=== PATIENT | male | born 1965 | race Caucasian/White ===

== ENCOUNTER 2022-02-09 16:30 | Emergency (ER) | payer MEDICAID, SELFPAY ==
[2022-02-09 16:58] VITALS: BP 152/96; PULSE 86; RESP 18; TEMP 35.6; O2SAT 99; BMI 31.0
--- NOTE | 2022-02-09 18:23 | ED.DENTAL ---
HPI - Dental/Oral General Chief complaint: Dental/Oral Stated complaint: infection in mouth Time Seen by Provider: 02/09/22 18:07 Source: patient and family Mode of arrival: ambulatory Limitations: language barrier ( Guatemalan-speaking) History of Present Illness MD Complaint: tooth pain Teeth map: 1. Onset (ago): week(s) (5-6) Duration: constant Severity: severe Severity scale (1-10): >10 Relieving factors: nothing Exacerbating factors: nothing Context: other ( patient reports he recently had a dental extraction at [facility] approximately 5-6 days ago and he has been having pain since then he tried to call them and he does not have an appointment till next week Tuesday and he is in severe pain unable to sleep or eat) Treatment prior to arrival: other ( he has been taking [id number] Motrin Tylenol no symptomatic relief) Related Data Previous Rx's Medication Instructions Recorded acetaminophen 500 mg tablet 1,000 mg PO QID PRN #20 tab 02/09/22 (Tylenol Extra Strength) clindamycin HCl 300 mg capsule 300 mg PO TID 14 Days #42 cap 02/09/22 ibuprofen 800 mg tablet 800 mg PO Q8H PRN #20 tab 02/09/22 oxycodone 5 mg tablet 5 mg PO Q6H PRN #20 tab 02/09/22 Allergies Allergy/AdvReac Type Severity Reaction Status Date / Time No Known Allergies Allergy Verified 02/09/22 17:02 Review of Systems Review of Systems: Constitutional : No Fever, No Chills, No changes in PO intake, No difficulty speaking, no recent dental procedure, no heat or cold intolerance while eating, no recent face trauma, ENT/Mouth : + Dental pain, No Sore throat, No Jaw pain, No throat swelling, No swallowing difficulty, no change in voice, No facial swelling, no drooling, no trismus, no bleeding, no lacerations, no tongue swelling, gum swelling, Eyes: No Eye Pain, No periorbital Swelling Cardiovascular : No Chest Pain, No SOB Respiratory : No Cough, No Sputum, No Wheezing, No Smoke Exposure, No Dyspnea Gastrointestinal : No Nausea, No Vomiting, No Diarrhea Genitourinary : No Dysuria Musculoskeletal : No Myalgias Skin : No rash, no facial swelling or redness, Neuro : No Weakness, No Numbness, No Headache Yes all other systems are reviewed and are negative [facility] Past Medical History Attestation statement: The following information was validated with the patient. Medical History No known health problems Surgical History S/P hernia surgery Social History Social History Advance Directives: No Advance Directives Information Provided: No Physical Exam Vital Signs: Vital Signs: Last Vital Signs Temp 96.0 F L 02/09/22 16:58 Pulse 86 02/09/22 16:58 Resp 18 02/09/22 16:58 BP 152/96 H 02/09/22 16:58 Pulse Ox 99 02/09/22 16:58 BMI result Body Mass Index 31.0 vital signs have been reviewed as normal and appeared to be correct. Blood pressure normal. Heart rate normal. Respiration rate normal. Temperature normal. Oxygen saturation normal. Appearance: Alert. Oriented X3. No acute distress. Head: Normal external exam. Normocephalic. Atraumatic. Eyes: PERRLA. EOMI. Conjunctiva and sclera normal. Eyelids normal. ENT: EAC normal. TM's Normal. Pharynx normal. Uvula midline. Moist mucous membranes. No trismus noted. No drooling noted. No muffled voice noted. Dentition: to the left lower 2nd bicuspid or the 1st molar was extracted and it appears that patient has a piece of the retained [address] There is no obvious signs of infection. The gingival is otherwise within normal limits. There is no fluctuance.Not consistent with peritonsillar abscess. Not consistent with dental abscess. No salivary duct obstruction noted. Neck: Normal inspection. Neck supple. FROM. No adenopathy. Thyroid Normal. No meningeal signs. No neck mass noted. Trachea midline. CVS: Normal heart rate and rhythm. Heart sound normal. No murmurs noted. Pulses normal throughout. Respiratory: No respiratory distress. Painless inspiration. Breath sounds normal. No wheezes/rales/rhonchi noted. Chest nontender. No accessory muscle usage noted or decreased air movement noted. Back: Full range of motion noted. Skin: Skin warm and dry. Normal skin color. Normal skin turgor. No rashes/lesions/lacerations noted. Extremities:Extremities exhibit normal range of motion. Extremities nontender. Neuro: Oriented X 3. No motor deficit. No sensory deficit. Reflexes normal. Course Course Course Narrative: 56-year-old male presenting to the ED after 5-6 days of having a dental extraction at [facility] he reports he has been taking Motrin Tylenol no symptomatic relief in the pain just continues to get worse he denies any fevers or any trouble swallowing or breathing. On exam it appears that he has a piece of the retained 2. It does not appear that he has dry socket at this time. Therefore no imaging or labs indicated. Not consistent with dental abscess/ gingival abscess/ with pharyngeal abscess. He is tolerating secretions well. No trismus/ drooling /stridor noted. Soft and hard palate are within normal limits. Uvula is midline. Therefore at this time will DC home with antibiotics and symptomatic treatment instructions to call his dentist / oral surgeon tomorrow and explained to them that he was seen here and has a retained tooth and that they will need to remove it. Patient understands agrees with this plan. [facility] - Dental/Oral Medical Records Attestation: I reviewed the patient's medical records. Discharge Plan Discharge Clinical Impression: Retained tooth Patient Disposition: Home, Self-Care Instructions: Toothache (ED) Prescriptions: New clindamycin HCl 300 mg capsule 300 mg PO TID 14 Days Qty: 42 0RF ibuprofen 800 mg tablet 800 mg PO Q8H PRN (Reason: pain) Qty: 20 0RF acetaminophen [Tylenol Extra Strength] 500 mg tablet 1,000 mg PO QID PRN (Reason: fever or pain) Qty: 20 0RF oxycodone 5 mg tablet 5 mg PO Q6H PRN (Reason: pain) Qty: 20 0RF Referrals: Physician,Unknown J [Primary Care Provider] - 1 day (your dentitis) Print Language: Guatemalan
== END 2022-02-09 18:38 | disposition home or self-care (01) ==
PROVIDERS: Emergency Provider Internal Medicine
DX: K04.7 Periapical abscess without sinus (principal)
CPT/HCPCS: 99283

== ENCOUNTER 2023-09-05 09:51 | Emergency (ER) | payer MEDICAID, SELFPAY ==
--- NOTE | ~2023-09-05 | XR_ITS ---
EXAMINATION: XR CHEST CLINICAL INFORMATION: Chest pain COMPARISON: None available. TECHNIQUE: 2 views of the chest were obtained. FINDINGS: No significant abnormality is noted involving the heart, lungs, mediastinum, bony thorax or soft tissues. XR/XR chest 2V IMPRESSION: Unremarkable chest examination.
--- NOTE | 2023-09-05 09:54 | ECG_ITS ---
Test Reason : CHEST PAIN Blood Pressure : / mmHG Vent. Rate : 081 BPM Atrial Rate : 081 BPM P-R Int : 162 ms QRS Dur : 082 ms QT Int : 336 ms P-R-T Axes : 071 028 018 degrees QTc Int : 390 ms Normal sinus rhythm Possible Left atrial enlargement Nonspecific T wave abnormality Abnormal ECG No previous ECGs available Referred By: Generic ED Physician Electronically Signed By:VELMA COX
[2023-09-05 10:03] VITALS: BP 169/104; PULSE 84; RESP 14; TEMP 36.2; O2SAT 97; BMI 31.0
[2023-09-05 10:10] VITALS: BP 163/93; PULSE 84; RESP 22; TEMP 37.1; O2SAT 99
[2023-09-05 10:26] VITALS: BP 146/96; PULSE 84; RESP 16; TEMP 36.5; O2SAT 98
--- NOTE | 2023-09-05 10:26 | ED.CHESTPAIN ---
HPI - Chest Pain General Chief Complaint: Chest Pain Stated Complaint: chest pain Time Seen by Provider: 09/05/23 10:05 Source: patient, RN notes reviewed and old records reviewed Mode of arrival: ambulatory History of Present Illness HPI narrative: 57-year-old Comoran-speaking male with no significant past medical history presenting to the ED complaining of a left-sided chest pain radiating to left neck, LUE and left upper back x 1 week described as stabbing, worsening/becoming more constant since last night. Reports topical creams at home provided some relief. Denies other exacerbating/alleviating factors, SOB, fever/chills, cough, new exercises, trauma/fall, pedal edema MD complaint: chest pain Related Data Previous Rx's Medication Instructions Recorded acetaminophen 500 mg tablet 1,000 mg (2 x 500 mg) PO QID PRN 02/09/22 (Tylenol Extra Strength) fever or pain #20 tabs clindamycin HCl 300 mg capsule 300 mg PO TID 14 days #42 caps 02/09/22 ibuprofen 800 mg tablet 800 mg PO Q8H PRN pain #20 tabs 02/09/22 oxycodone 5 mg tablet 5 mg PO Q6H PRN pain #20 tabs 02/09/22 acetaminophen 500 mg tablet 500 mg PO Q6H PRN fever or pain 09/05/23 (Tylenol Extra Strength) #14 tabs cyclobenzaprine 5 mg tablet 5 mg PO Q8H PRN pain (scale score 09/05/23 7-10) 5 days #14 tabs lidocaine 5 % topical patch 1 patch topical DAILY PRN pain #30 09/05/23 (Lidoderm) ea naproxen 500 mg tablet 500 mg PO BID PRN pain 10 days #20 09/05/23 tabs Allergies Allergy/AdvReac Type Severity Reaction Status Date / Time No Known Allergies Allergy Verified 09/05/23 10:03 Review of Systems Review of Systems: Constitutional: No Fever, No Chills, No Fatigue, No Malaise ENT/Mouth: No Ear Pain, No Nasal Congestion, No sore throat, No Rhinorrhea, No Swallowing Difficulty Eyes: No Eye Pain, No Swelling, No Redness, No Vision Changes Cardiovascular: + Chest Pain, No SOB, No Edema, No Palpitations Respiratory: No Cough, No Sputum, No Dyspnea Gastrointestinal: No Nausea, No Vomiting, No Diarrhea, No Constipation, No Abdominal pain Musculoskeletal: No joint pain, No Myalgias, No Joint Swelling Skin: No Skin Lesions, No rash Neuro: No Weakness, No Dizziness, No Headache Yes all other systems are reviewed and are negative Constitutional: Constitutional: Reports as per [facility] Past Medical History Attestation statement: The following information was validated with the patient. Source: old records reviewed Medical History No known health problems Surgical History S/P hernia surgery Social History Social History Smoked in Last 30 Days: No Use of substances other than those prescribed or required for medical reasons: No Advance Directives: No Advance Directives Information Provided: Yes Physical Exam Vital Signs: Vital Signs: Last Vital Signs Temp 97.7 F 09/05/23 10:26 Pulse 72 09/05/23 12:00 Resp 15 09/05/23 12:00 BP 143/96 H 09/05/23 12:00 Pulse Ox 99 09/05/23 12:00 O2 Del Method Room Air 09/05/23 12:00 BMI result Body Mass Index 31.0 Const: General: cooperative, healthy appearing and no acute distress Orientation/consciousness: patient oriented x3 Limitations: no limitations HEENT: Head: Yes normal to inspection and Yes atraumatic Ears: hearing grossly normal bilaterally General nose exam: Normal external nose present Face and sinus: Yes normal facial exam Eyes: General: appearance normal, both eyes and all related structures EOM: EOMs intact bilaterally Neck: Neck: Yes normal visual inspection and Yes no meningeal signs Chest: Other: + left-sided anterior lateral and posterior chest wall with reproducible tenderness. No rash/erythema or ecchymosis. No flail chest Chest palpation & inspection: normal inspection of the chest, no crepitus and tenderness Resp: Effort & Inspection: normal respiratory effort and no respiratory distress Auscultation: clear to auscultation bilaterally, no crackles, no rales, no rhonchi and no wheezes Cardio: Rate: regular rate Heart sounds: S1 normal heart sound present and S2 normal heart sound present GI: Inspection: Yes normal to inspection Palpation (GI): Soft to palpation, nontender, no guarding and not rigid : General: Yes no CVA tenderness Back/Spine/Pelvis: Back: no CVA tenderness Skin: Rashes: no rashes Wounds: no wounds Neuro: General: patient oriented x3, tone normal and no meningeal signs Cranial nerves: Yes CN's II-XII intact bilaterally Gait exam (Neuro): Normal gait present Extrem: General: Yes normal to inspection, Yes no pedal edema and Yes no calf tenderness Course Course Course Narrative: -1417--no leukocytosis. D-dimer negative. Troponin x2 negative -COVID and influenza negative XR chest 2V IMPRESSION: Unremarkable chest examination. Results discussed with patient including worrisome signs and symptoms and strict return precautions, and when to return to the emergency department. They verbalized understanding and feel safe for discharge at this time. Medications Administered Discontinued Medications Generic Name Dose Route Start Last Admin Trade Name Freq PRN Reason Stop Dose Admin Cyclobenzaprine HCl 10 mg 09/05/23 12:48 09/05/23 13:02 Cyclobenzaprine Hcl 10 Mg Tablet PO 09/05/23 12:49 10 mg ONCE ONE Administration Ketorolac Tromethamine 15 mg 09/05/23 12:23 09/05/23 12:34 Ketorolac Tromethamine 15 Mg/Ml Vial IVPUSH 09/05/23 12:24 15 mg ONCE ONE Administration Lidocaine 1 patch 09/05/23 12:23 09/05/23 12:34 Lidocaine 4 % Patch Adh..Patch TRANSDERMA 09/05/23 12:24 1 patch ONCE ONE Administration Protocol Lidocaine 1 patch 09/05/23 12:48 09/05/23 13:02 Lidocaine 4 % Patch Adh..Patch TRANSDERMA 09/05/23 12:49 1 patch ONCE ONE Administration Protocol Medical Decision Making Medical Decision Making MDM Narrative: 57-year-old Comoran-speaking male with no significant past medical history presenting to the ED complaining of a left-sided chest pain radiating to left neck, LUE and left upper back x 1 week described as stabbing, worsening/becoming more constant since last night. On exam vital signs stable, NAD, nontoxic appearing with physical exam as noted above with reproducible chest wall tenderness. Lungs CTA, no pedal edema/calf tenderness. Concern for costochondritis vs ACS vs pneumonia or PTX. Lower suspicion for DVT/PE or CHF And colon EKG, labs, CXR, COVID/flu testing Please refer to course for remaining clinical decision making, interpretation of labs/imaging results, and discussions with consultants and/or family members. Differential Diagnosis Differential Diagnoses: The differential diagnosis associated with the presentation includes As above Admission/Observation Consideration of admission/observation: Escalation of care including admission/observation considered Lab Data MDM Lab Attestation statement: I reviewed the patient's lab results. 09/05/23 10:40 09/05/23 10:40 Labs: Lab Results 09/05/23 09/05/23 09/05/23 Range/Units 10:40 13:01 13:12 WBC 5.3 (4.8-10.8) X10*3/uL RBC 5.79 (4.60-5.80) X10*6/uL Hgb 14.9 (14.0-18.0) g/dl Hct 45.2 (42.0-52.0) % MCV 78.1 L (80.0-98.0) fL MCH 25.7 L (27.0-33.0) pg MCHC 33.0 (31.0-36.0) g/dl RDW 13.4 (11.0-16.0) % Plt Count 180 (160-400) X10*3/uL MPV 11.3 (9.4-12.4) fL Immature Gran % (Auto) 0.2 (0.0-0.4) % Neut % (Auto) 30.4 L (45-73) % Lymph % (Auto) 54.5 H (20-40) % [place] % (Auto) 8.0 (2-11) % Eos % (Auto) 6.1 H (0-4) % Baso % (Auto) 0.8 (0-2) % Lymph # (Auto) 2.9 (1.2-4.9) X10*3/uL [place] # (Auto) 0.4 (0.1-1.2) X10*3/uL Eos # (Auto) 0.3 (0.0-0.4) X10*3/uL Baso # (Auto) 0.0 (0.0-0.2) X10*3/uL Abs Immat Gran (auto) 0.01 (0.00-0.03) X10*3/uL Absolute Neuts (auto) 1.6 L (2.0-8.3) x10*3/uL Absolute Nucleated RBC 0.000 (0.0-0.012) X10*3/uL Nucleated RBC % (auto) 0.0 (0.0-0.2) /100WBC D-Dimer High Sensitivty NG/ML Sodium 140 (135-145) mmol/L Potassium 3.5 (3.3-5.1) mmol/L Chloride 105 (96-108) mmol/L Carbon Dioxide 25 (22-29) mmol/L Anion Gap 14 (12-20) BUN 16 (9-16) mg/dL Creatinine 1.07 (0.5-1.4) mg/dL Estim Creat Clear Calc 86.7 Estimated GFR > 60 Random Glucose 108 (60-115) mg/dL Calcium 9.5 (8.4-10.2) mg/dL Magnesium 2.1 (1.6-2.6) mg/dL Total Bilirubin 0.6 (0.0-1.0) mg/dL Direct Bilirubin 0.2 (0.0-0.5) mg/dL AST 24 (5-37) U/L ALT 32 (0-40) U/L Alkaline Phosphatase 54 (39-117) U/L Troponin I High Sens < 2.7 < 2.7 (<3.5-35.0) ng/L Total Protein 7.5 (6.5-8.0) g/dL Albumin 4.3 (3.5-5.0) g/dL COVID-19 (JULITO) Negative (Negative) COVID-19 Clin Com See Note Influenza Type A (PETRA) Negative (Negative) Influenza Type B (PETRA) Negative (Negative) Influenza A & B Note See Note 09/05/23 Range/Units 13:35 WBC (4.8-10.8) X10*3/uL RBC (4.60-5.80) X10*6/uL Hgb (14.0-18.0) g/dl Hct (42.0-52.0) % MCV (80.0-98.0) fL MCH (27.0-33.0) pg MCHC (31.0-36.0) g/dl RDW (11.0-16.0) % Plt Count (160-400) X10*3/uL MPV (9.4-12.4) fL Immature Gran % (Auto) (0.0-0.4) % Neut % (Auto) (45-73) % Lymph % (Auto) (20-40) % [place] % (Auto) (2-11) % Eos % (Auto) (0-4) % Baso % (Auto) (0-2) % Lymph # (Auto) (1.2-4.9) X10*3/uL [place] # (Auto) (0.1-1.2) X10*3/uL Eos # (Auto) (0.0-0.4) X10*3/uL Baso # (Auto) (0.0-0.2) X10*3/uL Abs Immat Gran (auto) (0.00-0.03) X10*3/uL Absolute Neuts (auto) (2.0-8.3) x10*3/uL Absolute Nucleated RBC (0.0-0.012) X10*3/uL Nucleated RBC % (auto) (0.0-0.2) /100WBC D-Dimer High Sensitivty < 150 NG/ML Sodium (135-145) mmol/L Potassium (3.3-5.1) mmol/L Chloride (96-108) mmol/L Carbon Dioxide (22-29) mmol/L Anion Gap (12-20) BUN (9-16) mg/dL Creatinine (0.5-1.4) mg/dL Estim Creat Clear Calc Estimated GFR Random Glucose (60-115) mg/dL Calcium (8.4-10.2) mg/dL Magnesium (1.6-2.6) mg/dL Total Bilirubin (0.0-1.0) mg/dL Direct Bilirubin (0.0-0.5) mg/dL AST (5-37) U/L ALT (0-40) U/L Alkaline Phosphatase (39-117) U/L Troponin I High Sens (<3.5-35.0) ng/L Total Protein (6.5-8.0) g/dL Albumin (3.5-5.0) g/dL COVID-19 (JULITO) (Negative) COVID-19 Clin Com Influenza Type A (PETRA) (Negative) Influenza Type B (PETRA) (Negative) Influenza A & B Note Independent Interpretation I performed an independent interpretation of an: EKG and Plain X-Ray Radiology Impression Discussion of test interpretation with radiology: I have reviewed the radiologist's reading. Independent Historian Clinical information obtained from an independent historian. History obtained from or confirmed by: Spouse External Record Review External record reviewed: Inpatient record, Office record, Outpatient record, Prior outpatient labs, Prior outpatient radiology, Primary care record and Outside ED record Tests considered The following testing was considered but not selected: As above Prescription Management I considered prescription management with: Pain Medication Discharge Plan Discharge Clinical Impression: Atypical chest pain, Acute costochondritis Patient Disposition: Home, Self-Care Instructions: Costochondritis (ED), Noncardiac Chest Pain (ED) Additional Instructions: Your blood work and chest x-ray are reassuring you tested negative for COVID and flu Your pain is likely musculoskeletal however please follow-up with your doctor and Cardiology. If symptoms persist or worsen return to the ED Flexeril is a muscle relaxer, take at night as it makes you drowsy, do not drive, drink alcohol, or operate machinery while taking it Naproxen as an anti-inflammatory / pain medication, take with food Lidoderm patches are numbing patches, apply to painful area In addition take Tylenol at home Milner an?lisis de chet y milner radiograf?a de t?rax son tranquilizadores. connor negativo en la prueba de COVID y gripe Es probable que milner dolor sea musculoesquel?cinthya; sin embargo, jose un seguimiento con milner m?dico y con Cardiolog?a. Si los s?ntomas persisten o empeoran, regrese al servicio de urgencias. Flexeril es un relajante muscular, t?pressley por la noche ya que produce somnolencia, no conduzca, nadine alcohol ni opere maquinaria mientras lo mariano. Naproxeno bradley antiinflamatorio/analg?sico, lizbeth con alimentos Los parches de Lidoderm son parches adormecedores, se aplican en el ?mateo dolorida. Adem?s, tome Tylenol en casa. Prescriptions: New acetaminophen [Tylenol Extra Strength] 500 mg tablet 500 mg PO Q6H PRN (Reason: fever or pain) Qty: 14 0RF lidocaine [Lidoderm] 5 % adhesive patch,medicated 1 patch topical DAILY MDD remove after 12 hours PRN (Reason: pain) Qty: 30 0RF Rx Instructions: leave on most painful area for up to 12 hrs naproxen 500 mg tablet 500 mg PO BID PRN (Reason: pain) 10 Days Qty: 20 0RF cyclobenzaprine 5 mg tablet 5 mg PO Q8H PRN (Reason: pain (scale score 7-10)) 5 Days Qty: 14 0RF No Action clindamycin HCl 300 mg capsule 300 mg PO TID 14 Days Qty: 42 0RF ibuprofen 800 mg tablet 800 mg PO Q8H PRN (Reason: pain) Qty: 20 0RF acetaminophen [Tylenol Extra Strength] 500 mg tablet 1,000 mg PO QID PRN (Reason: fever or pain) Qty: 20 0RF oxycodone 5 mg tablet 5 mg PO Q6H PRN (Reason: pain) Qty: 20 0RF Referrals: [facility] [place] [facility] [Provider Group] Physician,Unknown J [Primary Care Provider] - Interventions: ED Discharge Assessment Last Done: 09/05/23 14:31 Discharge Date/Time: 09/05/23 14:36 Print Language: Comoran
--- NOTE | 2023-09-05 10:32 | PC.NURSE ---
left arm/neck/back/shoulder pain. stabbing. was happening last week too but got better. can't bear it. denies sob/n/v/dizziness. marble machine tender/radha mcmillan at bedside
[2023-09-05 10:44] LABS: MANUAL DIFF FLAG NO
[2023-09-05 10:47] LABS: Basophils Percent Auto 0.8 % (0-2); Eosinophils Absolute Auto 0.3 X10*3/uL (0.0-0.4); Eosinophils Percent Auto 6.1 % (0-4); Hematocrit 45.2 % (42.0-52.0); Hemoglobin 14.9 g/dl (14.0-18.0); Imm Gran Abs Auto 0.01 X10*3/uL (0.00-0.03); Imm Gran Pct Auto 0.2 % (0.0-0.4); Lymphocytes Absolute Auto 2.9 X10*3/uL (1.2-4.9); Lymphocytes Percent Auto 54.5 % (20-40); Mean Corpuscular Hemoglobin 25.7 pg (27.0-33.0); Mean Corpuscular Volume 78.1 fL (80.0-98.0); Mean Platelet Volume 11.3 fL (9.4-12.4); Monocytes Absolute Auto 0.4 X10*3/uL (0.1-1.2); Neutrophils Absolute Auto 1.6 x10*3/uL (2.0-8.3); Neutrophils Percent Auto 30.4 % (45-73); Platelet Count 180 X10*3/uL (160-400); Red Blood Count 5.79 X10*6/uL (4.60-5.80); Red Cell Distribution Width 13.4 % (11.0-16.0); White Blood Count 5.3 X10*3/uL (4.8-10.8)
[2023-09-05 11:00] LABS: Alanine Aminotransferase 32 U/L (0-40); Albumin Level 4.3 g/dL (3.5-5.0); Alkaline Phosphatase 54 U/L (39-117); Anion Gap 14 (12-20); Aspartate Amino Transferase 24 U/L (5-37); Bilirubin Direct 0.2 mg/dL (0.0-0.5); Bilirubin Total 0.6 mg/dL (0.0-1.0); Blood Urea Nitrogen 16 mg/dL (9-16); Calcium 9.5 mg/dL (8.4-10.2); Carbon Dioxide 25 mmol/L (22-29); Chloride 105 mmol/L (96-108); Creatinine Clr Calc Pharmacy 86.7; Estimated Glomerular Filt Rate > 60; Glucose Random 108 mg/dL (60-115); Magnesium 2.1 mg/dL (1.6-2.6); Potassium 3.5 mmol/L (3.3-5.1); Sodium 140 mmol/L (135-145); Total Protein 7.5 g/dL (6.5-8.0)
[2023-09-05 11:09] LABS: Troponin-I High Sensitivity < 2.7 ng/L (<3.5-35.0)
[2023-09-05 12:00] VITALS: BP 143/96; PULSE 72; RESP 15; O2SAT 99
[2023-09-05] MEDS: Lidocaine 4 % Patch ADH..PATCH 1 PATCH TRANSDERMA ×2 (12:34→13:02)
[2023-09-05] MEDS: Ketorolac Tromethamine 15 MG/ML VIAL IVPUSH (12:34)
[2023-09-05] MEDS: Cyclobenzaprine HCl 10 MG TABLET PO (13:02)
[2023-09-05 13:34] LABS: COVID-19 Test Negative (Negative); IDNOW Serial# 9DB6401D
[2023-09-05 13:35] LABS: IDNOW Serial# 58CA691E; Influenza A Negative (Negative); Influenza B2 Negative (Negative)
[2023-09-05 13:51] LABS: D Dimer High Sensitivity < 150 NG/ML
[2023-09-05 13:51] LABS: Troponin-I High Sensitivity < 2.7 ng/L (<3.5-35.0)
== END 2023-09-05 14:36 | disposition home or self-care (01) ==
PROVIDERS: Physician Assistant; Emergency Provider Emergency Medicine
DX: R07.89 Other chest pain (principal); M54.2 Cervicalgia; M94.0 Chondrocostal junction syndrome [Tietze]; Z11.52 Encounter for screening for COVID-19; Z20.822 Contact with and (suspected) exposure to COVID-19; Z79.899 Other long term (current) drug therapy
CPT/HCPCS: 36415; 71046; 80048; 80076; 83735; 84484; 85025; 85379; 87502; 87635; 93005; 96374; 99284; 99285; J1885

== ENCOUNTER → 2023-09-05 09:54 | Outpatient (BNV) | payer MEDICAID, SELFPAY | PROVIDERS: Emergency Provider Emergency Medicine; Visit Provider Internal Medicine | DX: R94.31 Abnormal electrocardiogram [ECG] [EKG] (principal) | CPT/HCPCS: 93010 ==